=== PATIENT | female | born 1940 | race Caucasian/White ===

== ENCOUNTER 2020-02-03 20:23 | Emergency (ER) | payer OTHER ==
[~2020-02-03] VITALS: Ht 165.1 cm; Wt 68.2 kg
[2020-02-03] MEDS ORDERED: SERT100T10 PO (21:02)
[2020-02-03] MEDS ORDERED: IRON150C13 PO (21:02)
[2020-02-03] MEDS ORDERED: DEXT1DRO13 EACHEYE (21:02)
[2020-02-03] MEDS ORDERED: SENN8.6T19 PO (21:02)
[2020-02-03] MEDS ORDERED: ALBU18HF2 INH (21:02)
[2020-02-03] MEDS ORDERED: CYAN500T63 PO (21:02)
[2020-02-03] MEDS ORDERED: LOSA25TA96 PO (21:02)
[2020-02-03] MEDS ORDERED: DOCU100C33 PO (21:02)
[2020-02-03] MEDS ORDERED: OMEP-50 PO (21:02)
[2020-02-03] MEDS ORDERED: LORA-269 PO (21:02)
[2020-02-03] MEDS ORDERED: FLUT16SP10 NAS (21:02)
[2020-02-03] MEDS ORDERED: CALC500T11 PO (21:02)
[2020-02-03] MEDS ORDERED: SIMV-42 PO (21:02)
[2020-02-03] MEDS ORDERED: LEVO75TA PO (21:02)
[2020-02-03] MEDS ORDERED: fentaNYL/PF 50MCG/1 ML 2ML syringe IV ONE (21:50)
--- NOTE | 2020-02-03 23:01 | NUR ---
Talked to nursery supervisor at [facility] concerning the patient's status. Report was given along with follow up instructions regarding the patient's discharge. The supervisory training specialist stated that she would arrange for [employer] to pickup the patient. She asked that I would notify the patient's POA concerning their ER visit.
--- NOTE | 2020-02-03 23:07 | NUR ---
Called the phone number supplied by the [place] for the patient's [facility] [phone] and left a message to call back if they had questions and that we were [facility].
[2020-02-03 23:37] VITALS: BP 174/57
== END 2020-02-03 23:42 | disposition short-term general hospital (02) ==
LOC: ER 20:24
DX: S42.202A Unspecified fracture of upper end of left humerus, initial encounter for closed fracture (principal); S00.83XA Contusion of other part of head, initial encounter; S50.312A Abrasion of left elbow, initial encounter; M25.512 Pain in left shoulder; I10 Essential (primary) hypertension; J44.9 Chronic obstructive pulmonary disease, unspecified; F32.9 Major depressive disorder, single episode, unspecified; E03.9 Hypothyroidism, unspecified; Z88.0 Allergy status to penicillin; Z88.2 Allergy status to sulfonamides; Z88.8 Allergy status to other drugs, medicaments and biological substances; Z91.018 Allergy to other foods; Z79.899 Other long term (current) drug therapy; W18.39XA Other fall on same level, initial encounter; Y93.89 Activity, other specified; Y92.89 Other specified places as the place of occurrence of the external cause; Y99.8 Other external cause status
CPT/HCPCS: 29105; 70450; 71045; 73080; 96374; 99285; J3010; 29125